=== PATIENT | male | born 1990 | race Two or more races ===

== ENCOUNTER 2019-07-31 09:53 | Emergency (ER) | payer SELFPAY ==
--- NOTE | 2019-07-31 10:19 | ED Physician Documentation ---
History of Present Illness - Stated complaint Stated Complaint: TOE ON R FOOT SWOLLEN - Chief complaint Chief Complaint: Ext Problem - History obtained from History obtained from: Patient - History of Present Illness Timing: Today - Additonal information Additional information: This is a 28-year-old presents with complaints that his Right second toe had been, bothering him to the week this past week but he had not had any specific injury to it so he was not that concerned and then he woke up this morning with discoloration across the top part of the toe. He did not take anything for the pain. It is more painful to try and put weight on it. No known injury. 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 He does not take blood thinning medications. Review of Systems Skin: reports: Other (Discoloration to right second toe) Musculoskeletal: reports: Extremity pain, Joint pain Neurologic: denies: Numbness PD PAST MEDICAL HISTORY - Past Medical History Past Medical History: No - Allergies Allergies/Adverse Reactions: Allergies Allergy/AdvReac Type Severity Reaction Status Date / Time No Known Drug Allergies Allergy Verified 07/31/19 10:00 - Social History Does the pt smoke?: No Smoking Status: Never smoker PD ED PE NORMAL - Vitals Vital signs reviewed: Yes - General General: Alert and oriented X 3, No acute distress, Well developed/nourished - Extremities Extremities: Other (There is deep purple discoloration consistent with bruising over the dorsal aspect of the right second toe centered mainly around the middle phalanx but spreading even to the plantar surface of the toe near the crease and also onto the dorsal aspect of the left foot. Has pain with palpation over the proximal and middle phalanx. He is able to wiggle the toe but limited movement compared to the other toes on that foot. Sensation is intact light touch in the pad.) Results - Vitals Vitals: Vital Signs - 24 hr 07/31/19 10:00 Temperature 36.7 C Heart Rate 86 Respiratory 15 Rate Blood Pressure 139/70 H O2 Saturation 100 Oxygen O2 Source Room air - Rads (name of study) R 2nd toe Radiology: EMP read contemporaneously (neg fracture) PD MEDICAL DECISION MAKING - ED course Complexity details: reviewed results, d/w patient ED course: The toe x-ray does not reveal any fracture. The patient is reassured. I recommended making sure that nothing is putting pressure on that while he is walking in his shoe. Ibuprofen if needed for pain. Departure - Departure Disposition: 01 Home, Self Care Clinical Impression: Contusion of toe of right foot Qualifiers: Encounter type: initial encounter Toe: lesser toe Damage to nail status: without damage Qualified Code(s): S90.121A - Contusion of right lesser toe(s) without damage to nail, initial encounter Condition: Good Instructions: ED Contusion Foot Follow-Up: [facility] [Provider Group] Comments: Take ibuprofen or Tylenol if needed for pain. Make sure nothing is pushing on the toe while it is in your shoe. Follow-up as needed.
[2019-07-31 11:32] VITALS: BP 124/54
--- NOTE | 2019-07-31 11:55 | XRAY Report ---
Reason: pain Procedure Date: 07/31/2019 Accession Number: [id number] / [id number] Procedure: XR - Toe(s) RT CPT Code: Final Report FULL RESULT: EXAM: RIGHT SECOND TOE RADIOGRAPHY EXAM DATE: 07/31/2019 11:06 AM HISTORY: Pain and swelling. COMPARISON: NONE TECHNIQUE: 3 views FINDINGS: The tip of the distal phalanx is flattened which may be a normal variant or secondary to old injury. No acute bony erosion. No fracture. Intact and well aligned articulations. Mild soft tissue swelling. No foreign body or gas. IMPRESSION: Normal variant flattened distal phalanx or old healed fracture. Mild soft tissue swelling. RADIA
== END 2019-07-31 11:32 | disposition home or self-care (01) ==
LOC: ED 09:53
DX: S90.121A Contusion of right lesser toe(s) without damage to nail, initial encounter (principal); X58.XXXA Exposure to other specified factors, initial encounter
CPT/HCPCS: 73660; 99282; 99283

== ENCOUNTER 2019-08-21 15:22 | Emergency (ER) | payer OTHER ==
[2019-08-21] MEDS ORDERED: IBUPROFEN 600 MG TABLET PO STA (15:36)
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
[2019-08-21] MEDS ORDERED: LIDOCAINE 1% 2 ML VIAL SUBQ STA (15:57)
[2019-08-21] MEDS ORDERED: LIDOCAINE 2% 50 ML MDV SUBQ STA (16:02)
--- NOTE | 2019-08-21 16:07 | XRAY Report ---
Reason: Trauma, swelling bruised Procedure Date: 08/21/2019 Accession Number: [id number] / [id number] Procedure: XR - Hand 3 View RT CPT Code: Final Report FULL RESULT: EXAM: RIGHT HAND RADIOGRAPHY EXAM DATE: 08/21/2019 03:41 PM. CLINICAL HISTORY: Right hand trauma after slamming hand in door, bruising. COMPARISON: None. TECHNIQUE: 3 views. FINDINGS: Bones: Acute comminuted right fifth metacarpal neck fracture is evident. Displacement measures up to approximately 2 mm with apex dorsal lateral angulation measuring approximately 40 degrees. Joints: Normal. No subluxations. Soft Tissues: Adjacent soft tissue swelling noted. IMPRESSION: Acute comminuted right fifth metacarpal neck fracture with apex dorsal lateral angulation. RADIA
--- NOTE | 2019-08-21 17:31 | XRAY Report ---
Reason: post reduction Procedure Date: 08/21/2019 Accession Number: [id number] / [id number] Procedure: XR - Hand 3 View RT CPT Code: Final Report FULL RESULT: EXAM: RIGHT HAND RADIOGRAPHY EXAM DATE: 08/21/2019 04:57 PM. CLINICAL HISTORY: Post reduction. COMPARISON: HAND 3 VIEW RT 08/21/2019 3:41 PM. TECHNIQUE: 3 views. FINDINGS: Bones: An acute displaced transverse nonarticular fracture through the distal aspect of right fifth metacarpal with improved angulation since prior/prereduction. Joints: Normal. No subluxations. Soft Tissues: Moderate soft tissue swelling overlying fracture site. IMPRESSION: An acute displaced transverse nonarticular fracture through the distal aspect of right fifth metacarpal with slightly improved angulation since prior/prereduction. RADIA
[2019-08-21 17:50] VITALS: BP 130/72
--- NOTE | 2019-08-21 19:14 | MISCELLANEOUS PROVIDER NOTE ---
Miscellaneous Provider Note - - Note: Called to give a "heads up" about this patient by Dr. Mitchell. Reported right closed 5th mc fracture post crush injury. Closed reduction reportedly attempted with hematoma block. Reported some residual angular or rotational deformity. Possible due to less common angular deformity which is more apex ulnar rather than apex dorsal which may be more difficult to reduce in ED. Patient advised of potentially residual deformity, that he may need additional procedure, and advised ED MD that Orthopedic Office would reach out to him to help arrange further treatment whether that is at [facility] care or with an orthopedic hand and wrist specialist. That said, he is to be given contact info and asked to call office in AM as well.
== END 2019-08-21 17:49 | disposition home or self-care (01) ==
LOC: ED 15:22
DX: S62.326A Displaced fracture of shaft of fifth metacarpal bone, right hand, initial encounter for closed fracture (principal); W23.0XXA Caught, crushed, jammed, or pinched between moving objects, initial encounter; Y93.F9 Activity, other caregiving; Y99.0 Civilian activity done for income or pay
CPT/HCPCS: 26605; 73130; 99283; A9270

== ENCOUNTER 2019-08-25 09:35 | Emergency (ER) | payer OTHER ==
[2019-08-25 09:52] VITALS: BP 123/69
[2019-08-25] MEDS ORDERED: DEXAMETHASONE 10 MG/ML VIAL PO STA (11:05)
[2019-08-25] MEDS ORDERED: CHERRY SYRUP 10 ML UDC PO ONE (11:05)
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
== END 2019-08-25 11:16 | disposition home or self-care (01) ==
LOC: ED 09:35
DX: S62.366A Nondisplaced fracture of neck of fifth metacarpal bone, right hand, initial encounter for closed fracture (principal); Y08.89XA Assault by other specified means, initial encounter; Y99.0 Civilian activity done for income or pay
CPT/HCPCS: 99282; 99284; A9270

== ENCOUNTER 2020-01-26 20:49 | Emergency (ER) | payer OTHER ==
[2020-01-26 20:54] VITALS: BP 148/82
--- NOTE | 2020-01-26 21:03 | ED Physician Documentation ---
History of Present Illness - Stated complaint Stated Complaint: RT SIDE TOOTH PAIN - Chief complaint Chief Complaint: General - History obtained from History obtained from: Patient - History of Present Illness Timing: How many days ago (3) - Additonal information Additional information: 29-year-old male here with 3 days of right upper tooth pain. He has obvious dental decay there and thinks he needs to have the tooth pulled. He has no fevers or trismus. He has no dysphonia or difficulty swallowing. He turns his neck normally. There is no facial swelling. Has not seen a dentist in quite some time. He has not taken anything for pain but last night he took a Benadryl to help him sleep. Patient denies any tobacco or alcohol. He denies any pertinent past medical history. Review of Systems Constitutional: denies: Fever, Chills Throat: reports: Dental pain / toothache. denies: Oral lesions / sores, Sore throat, Swollen tonsils, Swallowed foreign body Cardiac: denies: Chest pain / pressure, Palpitations Respiratory: denies: Dyspnea, Cough GI: denies: Abdominal Pain, Vomiting Skin: denies: Rash, Lesions Musculoskeletal: denies: Neck pain, Back pain Neurologic: denies: Generalized weakness, Focal weakness, Syncope, Seizure, Confused PD PAST MEDICAL HISTORY - Present Medications Home Medications: Ambulatory Orders Medication Instructions Recorded Confirmed Hydrocodone/Acetaminophen 1 - 2 each PO Q6H PRN #14 tablet 08/21/19 [Hydrocodon-Acetaminophen 5-325] Oxycodone HCl/Acetaminophen 1 - 2 each PO Q6H PRN #14 tablet 08/25/19 [Percocet 5-325 mg Tablet] Amox/Clav 875/125 [Augmentin] 1 each PO Q12H #14 tablet 01/26/20 Ibuprofen [Ibu] 600 mg PO Q8HR PRN #20 tablet 01/26/20 - Allergies Allergies/Adverse Reactions: Allergies Allergy/AdvReac Type Severity Reaction Status Date / Time No Known Drug Allergies Allergy Verified 01/26/20 20:50 - Social History Does the pt smoke?: No Smoking Status: Never smoker PD ED PE NORMAL - General General: Alert and oriented X 3, No acute distress, Well developed/nourished - HEENT HEENT: Moist mucous membranes, Pharynx benign (Patient with normal phonation and swallow. Able to turn neck fully. He has no trismus and is able to open his mouth fully. There is no facial swelling.), Other (Tooth #3 with obvious decay on anterior side of tooth. Gumline surrounding tooth mildly fluctuant. There is percussion tenderness to the tooth.) - Cardiac Cardiac: RRR, No murmur - Abdomen Abdomen: Non tender Results - Vitals Vitals: Vital Signs - 24 hr 01/26/20 01/26/20 20:50 20:59 Temperature 37.8 C H Heart Rate 77 Respiratory 20 17 Rate Blood Pressure 148/82 H O2 Saturation 97 Oxygen O2 Source Room air PD MEDICAL DECISION MAKING - ED course Complexity details: d/w patient ED course: 29-year-old male here with 3 days of right upper tooth pain at tooth #3. The tooth is obviously decayed with some mild gumline swelling and fluctuance surrounding it. I have prescribed Augmentin for early abscess. I recommend warm salt water rinses 3 times a day. Patient reports that he [place] and [place] [facility] [place] [facility] [place] His exam is otherwise reassuring without findings suggestive of fever or trismus. He has normal phonation and swallow. Emergent return precautions discussed. Departure - Departure Disposition: 01 Home, Self Care Clinical Impression: Dentalgia, Dental decay, Dental abscess Condition: Stable Instructions: ED Tooth Pain Prescriptions: Ibuprofen [Ibu] 600 mg PO Q8HR PRN #20 tablet PRN Reason: Pain Amox/Clav 875/125 [Augmentin] 1 each PO Q12H #14 tablet Comments: Who is a your third molar is decayed and it looks like you have an early abscess forming. Please fill the prescription for the antibiotics and take as directed. I would like you to rinse your mouth with warm salt water 3 times a day. This will help draw out infection and reduce inflammation. I have also prescribed ibuprofen to be used for pain. Take as directed and with food this should help with pain in the long-term. [place] of this tooth pain as it will only get worse with time Return here for fevers, inability to open your mouth, if you cannot tolerate or swallow your oral secretions.
[2020-01-26] MEDS ORDERED: IBUPROFEN 600 MG TABLET PO STA (21:04)
== END 2020-01-26 21:11 | disposition home or self-care (01) ==
LOC: ED 20:49
DX: K04.7 Periapical abscess without sinus (principal); K02.9 Dental caries, unspecified; K08.89 Other specified disorders of teeth and supporting structures
CPT/HCPCS: 99282; 99283; A9270

== ENCOUNTER 2020-10-17 13:47 | Emergency (ER) | payer OTHER ==
--- OUTSIDE RECORDS SUMMARY | 2020-10-17 13:51 | EXTERNAL MEDICAL SUMMARY RPT | Continuity of Care Document ---
:1990 Demographics Phone Unavailable Preferred Language Unknown Marital Status Unknown Taoist Affiliation Unknown Race Unknown Ethnic Group Unknown Author Organization [facility] Address [address] [place] [address] Phone Social History date description facility [phone]
[2020-10-17 13:55] VITALS: BP 145/66
--- OUTSIDE RECORDS SUMMARY | 2020-10-17 13:58 | EXTERNAL MEDICAL SUMMARY RPT | Continuity of Care Document ---
:1990 Demographics Phone Unavailable Preferred Language Unknown Marital Status Unknown Anabaptism Affiliation Unknown Race Unknown Ethnic Group Unknown Author Organization [facility] Address [address] [place] [address] Phone Social History date description facility [phone]
--- NOTE | 2020-10-17 14:22 | ED Physician Documentation ---
History of Present Illness - Stated complaint Stated Complaint: SORE ON BACKSIDE - Chief complaint Chief Complaint: Wound - Additonal information Additional information: 29-year-old male presents emergency department for evaluation of a soft tissue growth on his right buttock. He reports that his noticed it about 3 months ago however over the last week the growth has become painful and often causes numbness in the left leg especially when sitting. He has no history of similar in the past. Review of Systems Constitutional: reports: Reviewed and negative Eyes: reports: Reviewed and negative Ears: reports: Reviewed and negative Nose: reports: Reviewed and negative Cardiac: reports: Reviewed and negative Respiratory: reports: Reviewed and negative GI: reports: Reviewed and negative : reports: Reviewed and negative Skin: reports: Other (soft tissue swelling left buttock) Musculoskeletal: reports: Reviewed and negative Neurologic: reports: Numbness (left leg when sitting for too long) PD PAST MEDICAL HISTORY - Past Medical History Cardiovascular: None Respiratory: None Neuro: None Endocrine/Autoimmune: None GI: None : None HEENT: None Psych: None Musculoskeletal: None Derm: None - Past Surgical History Past Surgical History: No - Present Medications Home Medications: Ambulatory Orders Medication Instructions Recorded Confirmed No Known Home Medications 10/17/20 10/17/20 - Allergies Allergies/Adverse Reactions: Allergies Allergy/AdvReac Type Severity Reaction Status Date / Time No Known Drug Allergies Allergy Verified 10/17/20 13:48 - Social History Does the pt smoke?: No Smoking Status: Never smoker Does the pt drink ETOH?: No Does the pt have substance abuse?: No - Immunizations Immunizations are current?: Yes - POLST Patient has POLST: No PD ED PE EXPANDED - General General: Alert, No acute distress - Back Back: Normal exam, Normal ROM. No: Vertebral tenderness, Soft tissue tenderness - Extremities Extremities: Normal, Other (left buttock with a palpable soft, non fluctuant non mobile mass 5x6 cm; no erythema). No: Deformity, Tenderness Results - Vitals Vitals: Vital Signs - 24 hr 10/17/20 13:49 Temperature 36.6 C Heart Rate 85 Respiratory 18 Rate Blood Pressure 145/66 H O2 Saturation 99 Oxygen O2 Source Room air - Rads (name of study) Soft tissue US Radiology: See rad report, Other (Per ophthalmic technologist this is a simple appearing lipoma without complicating features.) PD MEDICAL DECISION MAKING - ED course Complexity details: reviewed results, re-evaluated patient, d/w patient ED course: 29-year-old male presents the emergency department for evaluation of left buttock tissue mass that was first noted 3 months ago but has become increasingly painful over the last week. He often has some numbness in the left leg when he sits for too long. On exam he has a palpable nonmobile soft nonfluctuant mass that I suspect is a lipoma on initial investigation. My limited bedside ultrasound did not reveal any fluid collections. I will order a formal ultrasound to better characterize this mass and then likely make referral to outpatient surgery for further evaluation. Though he reports left leg numbness intermittently when sitting I suspect this is peripheral nerve compression secondary to the mass. He does not have any low back pain or cauda equina red flag symptoms. Findings were discussed with patient. He will be discharged home. I will make a referral for him to general surgery clinic though at this likely needs to come through his primary care provider as he is insured with [employer]. Emergent return precautions were discussed. Departure - Departure Disposition: 01 Home, Self Care Clinical Impression: Lipoma Qualifiers: Lipoma location: other site Qualified Code(s): D17.79 - Benign lipomatous neoplasm of other sites Condition: Stable Record reviewed to determine appropriate education?: Yes Instructions: Lipoma Follow-Up: Gaby Dela Cruz MD [Provider Admit Priv/Credential] - Comments: Marvin the soft tissue mass on your left buttock is a lipoma. This is likely grown large enough to put some pressure on one of the peripheral nerves in your leg causing the intermittent numbness especially when sitting. In the long-term you likely need to have this lipoma excised or taken out. I have given you the name of a general surgeon to call for follow-up however as you are insured with [employer] a primary care doctor will likely need to make the referral. Return to the emergency department for any fevers, redness of this lipoma or concerns of infection.
--- NOTE | 2020-10-17 15:15 | Ultrasound Report ---
PROCEDURE: Ext Limited Non Vascular INDICATIONS: Left buttock. ? lipoma TECHNIQUE: Real-time scanning was performed of the , with image documentation. COMPARISON: None. FINDINGS: There is a encapsulated 3.0 x 1.3 x 4.0 cm left buttock mass, corresponding to the area of current clinical concern. This has echotexture consistent with lipoma. IMPRESSION: Apparent fatty mass in the area of current clinical concern left lateral buttock area, m easuring up to 3.0 x 4.0 x 1.3 cm. MR scanning is recommended with contrast history of liposarcoma is clinically suspected. Reviewed by: Samm Medel MD on 10/17/2020 3:13 PM PDT Approved by: Samm Medel MD on 10/17/2020 3:13 PM PDT Station ID: [id number]
--- NOTE | 2020-10-19 16:26 | ED Physician Documentation ---
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 I spoke with the patient on the phone regarding this he is not yet established with a primary provider and will need an emergent MRI in follow up. The ED does not have MRI availability at this time. I advised the patient to go to the [facility] walk in to help expedite care. 1620: I then called the [facility] walk in clinic and spoke with Dr. Henrandez on shift. We briefly discussed the case and I indicated that the patient would be checking into the clinic shortly. I discussed that he was not yet established with a [facility] doctor and needs a more emergent follow up of the possible liposacroma. Pt's full name and were given. Dr. Hernandez reported that he would help arrange appropriate follow up and care.
== END 2020-10-17 15:14 | disposition home or self-care (01) ==
LOC: ED 13:47
DX: D17.79 Benign lipomatous neoplasm of other sites (principal)
CPT/HCPCS: 99282; 99284

== ENCOUNTER 2020-11-05 16:43 | Outpatient (CLI) | payer OTHER | END 2020-11-05 16:44 | disposition home or self-care (01) | LOC: COV 16:43 | PROVIDERS: ATTEND Surgery | DX: Z01.812 Encounter for preprocedural laboratory examination (principal); D17.1 Benign lipomatous neoplasm of skin and subcutaneous tissue of trunk; Z20.822 Contact with and (suspected) exposure to COVID-19 ==

== ENCOUNTER 2020-11-08 08:57 | Day surgery (SDC) | payer OTHER ==
[~2020-11-08 08:57] MED LIST: ceFAZolin 2 GM/50 ML 2 GM/50 ML BAG IV ONE
[2020-11-08] MEDS ORDERED: LACTATED RINGERS 1,000 ML IV ONE ×2 (09:00→12:54)
--- OUTSIDE RECORDS SUMMARY | 2020-11-08 09:00 | EXTERNAL MEDICAL SUMMARY RPT | Continuity of Care Document ---
:1990 Demographics Phone Unavailable Preferred Language Unknown Marital Status Unknown Zoroastrian Affiliation Unknown Race Unknown Ethnic Group Unknown Author Organization [facility] Address [address] [phone] Phone Social History date description facility [id number]
--- NOTE | 2020-11-08 09:53 | ANESTHESIA ---
Pre-Anesthesia VS, & Labs - Diagnosis left buttock lipoma - Procedure excision of left buttock lipoma Vital Signs: Temp Pulse Resp BP Pulse Ox 36.7 C 85 16 142/71 H 99 11/08/20 09:03 11/08/20 09:03 11/08/20 09:03 11/08/20 09:03 11/08/20 09:03 Height: 5 ft 8 in Weight (kg): 77 kg Body Mass Index: 25.8 BMI Classification: Overweight - NPO >8 hours Home Medications and Allergies No Known Home Medications 10/17/20 Allergies/Adverse Reactions: Allergies Allergy/AdvReac Type Severity Reaction Status Date / Time No Known Drug Allergies Allergy Verified 10/17/20 13:48 Anes History & Medical History - Anesthetic History Anesthesia Complications: reports: No previous complications - Medical History Cardiovascular: reports: None Pulmonary: reports: None Gastrointestinal: reports: None Urinary: reports: None Neuro: reports: None Musculoskeletal: reports: None Endocrine/Autoimmune: reports: None Blood Disorders: reports: None Skin: reports: None Smoking Status: Never smoker Psychosocial: reports: Cannabis (daily use) History of Cancer?: No - Surgical History Cardiothoracic: reports: Other (Thorocospic decortication) Exam General: Alert, Oriented x3, Cooperative, No acute distress Dental: WNL Mouth Openin Fingerbreadth Neck Mobility: Normal Mallampati classification: II Thyromental Distance: 4-6 cm Respiratory: Lungs clear, Normal breath sounds, No respiratory distress, No accessory muscle use Cardiovascular: Regular rate, Normal S1, Normal S2, No murmurs Mental/Cognitive Status: Alert/Oriented X3, Normal for patient Plan Anesthesia Type: General Consent for Procedure(s) Verified and Reviewed: Yes Code Status: Attempt Resuscitation ASA classification: 2-Mild systemic disease Is this case an emergency?: No
[2020-11-08] MEDS ORDERED: fentaNYL 100 MCG/2 ML VIAL ONE (10:17)
[2020-11-08] MEDS ORDERED: MIDAZOLAM 2 MG/2 ML VIAL ONE ×2 (10:17→11:36)
[2020-11-08] MEDS ORDERED: PROPOFOL 200 MG/20 ML VIAL IVP ONE ×2 (10:17)
[2020-11-08] MEDS ORDERED: LIDOCAINE MPF 2%-EPI 1:200000 20 ML VIAL ONE (11:24)
[2020-11-08] MEDS ORDERED: BUPIVACAINE 0.5% PF 30 ML VIAL ONE (11:24)
[2020-11-08] MEDS ORDERED: LIDOCAINE 2%-EPI 1:100000 20 ML MDV SUBQ ONE ×2 (11:30→12:30)
[2020-11-08] MEDS ORDERED: BUPIVACAINE 0.5% PF 30 ML VIAL INFIL ONE ×2 (11:30→12:30)
[2020-11-08] MEDS ORDERED: KETAMINE 500 MG/10 ML VIAL ONE (11:36)
[2020-11-08] MEDS ORDERED: BACITRACIN ZINC OINT 1 PACKET TOP ONE (12:32)
[2020-11-08] MEDS ORDERED: PROPOFOL 1000 MG/100 ML 1,000 MG/100 ML BOTTLE IV ONE (12:33)
[2020-11-08] MEDS ORDERED: ONDANSETRON 4 MG/2 ML VIAL IVP PRN (12:41)
[2020-11-08] MEDS ORDERED: HYDROmorphone 0.5 MG/0.5 ML SYRINGE IVP PRN (12:41)
[2020-11-08] MEDS ORDERED: oxyCODONE 5 MG TABLET PO PRN (12:41)
--- NOTE | 2020-11-08 12:48 | PROVIDER PROGRESS NOTE ---
Progress Note - General Procedure Date: 11/08/20 Planned Procedure: 1. Left buttock lipoma 2. Wide local excision Pre-Op Diagnosis: Left buttock lipoma Procedure Performed: 1. Left buttock lipoma 2. Wide local excision Post Op Diagnosis: Same - Procedure Note Primary Surgeon: Yanick Secondary Surgeon: Dewayne Anesthesia Provider: Luis Enrique Anesthesia Technique: Local, MAC Pathology: 1. Left buttock lipoma 2. Deep margin Estimated Blood Loss (mL): 10 Indications: See clinic note Findings: 4 to 5 cm lipomatous lesion within the left buttock removed in the superficial subcutaneous fat deep margin achieved wound closed in layers hemostatic no complication. Complications: none
--- NOTE | 2020-11-08 12:51 | OPERATIVE REPORT ---
Operative Report - General Procedure Date: 11/08/20 Planned Procedure: 1. Left buttock lipoma 2. Wide local excision Pre-Op Diagnosis: Left buttock lipoma Procedure Performed: 1. Left buttock lipoma 2. Wide local excision 3. Layered closure Post Op Diagnosis: Same - Procedure Note Primary Surgeon: Yanick Secondary Surgeon: Dewayne Anesthesia Provider: Luis Enrique Anesthesia Technique: Local, MAC Pathology: 1. Left buttock lipoma 2. Deep margin Estimated Blood Loss (mL): 10 Drain/Tube Type: Other (No drains) Indications: See clinic note Findings: 4 to 5 cm lipomatous lesion within the left buttock removed in the superficial subcutaneous fat deep margin achieved wound closed in layers hemostatic no complication. Complications: none - Other Other Information/Narrative: DATE OF SERVICE: 11/08/2020 Physician: Vikash Herndon MD ADDENDUM OPERATIVE NOTE: Patient taken to the operating room and placed supine on the operating table. Patient was placed in partial right decubitus to expose the left buttock. Patient was induced for general anesthesia, prepped and draped in the usual sterile fashion. Site and side were marked and identified. Timeout was called and agreed to by all in the room. A longitudinal incision of approximately 7 to 10cm was made overlying the area of concern as it relates to the patient's known lipoma. This was taken down through the subcutaneous fat with Bovie electrocautery. The soft tissue mass was identified and excised circumferentially with sharp dissection using Metzenbaum scissors. An area of soft tissue mass deep penetration was noted, which was also incised as separate specimen reflecting the deep margin. This mass was approximately 5 cm in length, and 3 cm in width and depth. 4 to 5 cm lipomatous lesion within the left buttock removed in the superficial subcutaneous fat, deep margin achieved wound closed in layers hemostatic no complication. Additional margin was approximately 3-4 cm in length and 2 cm diameter. With this completed, we checked for hemostasis, which was achieved. This was accomplished with Bovie electrocautery. We closed this wound in layers without any complication. This was performed with 2-0 Vicryl to close deep subcutaneous fat and deep dermals, and skin shaji for the skin. A local block was achieved. The patient tolerated well with no complication. The wound was dressed with dry sterile gauze and Tegaderm. I was present for the entirety of this operative intervention. No complications. As present for the entirety of this operative intervention. All counts for sponges needles and instruments were inclusion of this operative case. TD: 11/19/2020 04:10
[2020-11-08] MEDS ORDERED: LACTATED RINGERS 1,000 ML IV SCH (13:00)
[2020-11-08 13:11] VITALS: BP 128/75
[2020-11-08] MEDS ORDERED: oxyCODONE 5 MG TABLET ONE (13:14)
--- NOTE | 2020-11-08 13:35 | ANESTHESIA POST OP EVALUATION ---
Anesthesia Post Eval - Post Anesthesia Eval Vitals: Last Vital Signs Temp 36.4 C L 11/08/20 13:10 Pulse 68 11/08/20 13:10 Resp 17 11/08/20 13:10 BP 128/75 11/08/20 13:10 Pulse Ox 99 11/08/20 13:10 CV Function Including HR & BP: Stable Pain Control: Satisfactory Nausea & Vomiting: Negative Mental Status: Baseline Respiratory Status: Airway Patent Hydration Status: Satisfactory Anesthesia Complications: None
== END 2020-11-08 08:58 | disposition home or self-care (01) ==
LOC: SDS 08:57
PROVIDERS: ATTEND Surgery
PROC: 0JBC0ZZ Excision of Pelvic Region Subcutaneous Tissue and Fascia, Open Approach (ICD-10-PCS; principal; 2020-11-08 10:00)
DX: D17.1 Benign lipomatous neoplasm of skin and subcutaneous tissue of trunk (principal); E66.3 Overweight; Z68.25 Body mass index [BMI] 25.0-25.9, adult; Z72.89 Other problems related to lifestyle; Z87.891 Personal history of nicotine dependence
CPT/HCPCS: 27043; A9270; J0690; J7120

== ENCOUNTER 2021-08-10 02:57 | Emergency (ER) | payer OTHER ==
[2021-08-10] MEDS ORDERED: PROPARACAINE 0.5% OPHTH DROPS 15 ML EACHEYE STA (03:24)
[2021-08-10] MEDS ORDERED: IPRATROPIUM/ALBUTEROL 3 ML NEB INH STA (03:31)
--- NOTE | 2021-08-10 03:35 | ED Physician Documentation ---
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 denies fever/chills, body aches, malaise, ear pain. covid vaccinated. not boosted. Review of Systems Ten Systems: 10 systems reviewed and negative Constitutional: denies: Fever, Chills, Myalgias Throat: reports: Sore throat Cardiac: reports: Other (chest tightness) Respiratory: reports: Dyspnea, Cough PD PAST MEDICAL HISTORY - Past Medical History Cardiovascular: None Respiratory: None Neuro: None Endocrine/Autoimmune: None GI: None : None HEENT: Chronic vision loss Psych: None Musculoskeletal: None Derm: None - Past Surgical History Past Surgical History: No Cardiovascular: Other (Thorocospic decortication) - Present Medications Home Medications: Ambulatory Orders Medication Instructions Recorded Confirmed Albuterol Sulf [Ventolin Hfa 1 - 2 puffs INH Q4HR PRN #18 gm 08/10/21 Inhaler] - Allergies Allergies/Adverse Reactions: Allergies Allergy/AdvReac Type Severity Reaction Status Date / Time No Known Drug Allergies Allergy Verified 08/10/21 03:19 - Social History Does the pt smoke?: No Smoking Status: Never smoker Does the pt drink ETOH?: No Does the pt have substance abuse?: No - Immunizations Immunizations are current?: Yes - POLST Patient has POLST: No PD ED PE NORMAL - Vitals Vital signs reviewed: Yes - General General: Alert and oriented X 3, No acute distress, Well developed/nourished - HEENT HEENT: Atraumatic, PERRL, EOMI - Neck Neck: Supple, no meningeal sign - Cardiac Cardiac: RRR - Respiratory Respiratory: Other (BL expiratory wheezing in all lung amos) - Abdomen Abdomen: Non tender, Non distended - Derm Derm: Normal color, Warm and dry - Extremities Extremities: No deformity - Neuro Neuro: Alert and oriented X 3, No motor deficit, No sensory deficit - Psych Psych: Normal mood, Normal affect Results - Vitals Vitals: Vital Signs - 24 hr 08/10/21 08/10/21 08/10/21 03:00 03:59 05:47 Temperature 37.3 C Heart Rate 129 H 86 92 Respiratory 20 18 18 Rate Blood Pressure 123/78 O2 Saturation 96 08/10/21 05:49 Temperature 36.8 C Heart Rate 112 H Respiratory 18 Rate Blood Pressure 111/67 O2 Saturation 97 Oxygen O2 Source Room air PD MEDICAL DECISION MAKING - ED course ED course: 30yM with hx severe childhood asthma and spontaneous PTX 4 years ago, both now resolved, p/w acute onset SOA while exerting himself at work this evening. Coarse breath sounds and expiratory wheezing throughout lung amos concerning for asthma exacerbation. Will also obtain CXR to r/o PTX. patient feeling significantly better s/p neb treatments. plan to dc home to f/u with pcp. cxr without evidence of PTX. return precautions given and albuterol rx provided. Departure - Departure Disposition: Home, Self Care Clinical Impression: Cough, Shortness of breath Condition: Stable Instructions: Asthma, Inhaler W Spacer, Inhaler Use Prescriptions: Albuterol Sulf [Ventolin Hfa Inhaler] 1 - 2 puffs INH Q4HR PRN #18 gm PRN Reason: Shortness Of Air/Wheezing Comments: You were seen in the ED for evaluation of sudden shortness of breath. Your chest xray showed no pneumothorax or pneumonia. A covid test was sent and will result in a couple days. You can view the results on your patient health portal on the [employer] website. You should follow up with your primary doctor for further evaluation of possible new onset asthma. Please return to the ED if you have new or worsening symptoms or other concerns.
[2021-08-10] MEDS ORDERED: ALBUTEROL NEB 2.5 MG/3 ML INH STA (05:39)
[2021-08-10 07:02] VITALS: BP 125/85
--- NOTE | 2021-08-10 07:51 | XRAY Report ---
PROCEDURE: Chest 2 View X-Ray INDICATIONS: soa, cough, chest tight, sore throat, rhinorrhea TECHNIQUE: 2 view(s) of the chest. COMPARISON: None. FINDINGS: Surgical changes and devices: None. Lungs and pleura: No pleural effusions or pneumothorax. Lungs are clear of infiltrates right basila r atelectasis. Mediastinum: Mediastinal contours are normal. Heart size is normal. Bones and chest wall: No suspicious bony abnormalities. Soft tissues appear unremarkable. IMPRESSION: No acute cardiopulmonary findings Note: Final report is concordant with preliminary report provided by [facility] ([facility]) Reviewed by: Zen Varghese MD on 08/10/2021 6:50 AM [place] Approved by: Zen Varghese MD on 08/10/2021 6:50 AM [facility] Station ID: [id number]
== END 2021-08-10 06:58 | disposition home or self-care (01) ==
LOC: ED 02:57
DX: R05.9 Cough, unspecified (principal); R06.02 Shortness of breath; Z20.822 Contact with and (suspected) exposure to COVID-19
CPT/HCPCS: 94640; 94664; 99283; 99284

== ENCOUNTER 2022-01-06 07:05 | Emergency (ER) | payer OTHER ==
[2022-01-06] MEDS ORDERED: HYDROcod/ACETAM 5/325 MG TABLET PO STA (08:18)
--- NOTE | 2022-01-06 08:23 | ED Physician Documentation ---
History of Present Illness - Stated complaint Stated Complaint: R SIDE PAIN - Chief complaint Chief Complaint: General - History obtained from History obtained from: Patient - History of Present Illness Timing: Other (2 months) Pain level max: 7 Pain level now: 6 - Additonal information Additional information: Patient is a 31-year-old male who complains of right rib pain for the past 2 months. He states started after coughing heavily. Worse with movement, better with rest. Has seen his doctor, was told it was likely muscular and sent home. No x-rays have been done. No fever. No chills. No recent coughing. Denies any other trauma. Review of Systems Constitutional: denies: Fever, Chills Throat: denies: Sore throat Cardiac: denies: Chest pain / pressure, Palpitations Respiratory: denies: Dyspnea, Wheezing GI: denies: Nausea, Vomiting Skin: denies: Rash PD PAST MEDICAL HISTORY - Past Medical History Cardiovascular: None Respiratory: None Neuro: None Endocrine/Autoimmune: None GI: None : None HEENT: Chronic vision loss Psych: None Musculoskeletal: None Derm: None - Past Surgical History Past Surgical History: No Cardiovascular: Other (Thorocospic decortication) - Present Medications Home Medications: Ambulatory Orders Medication Instructions Recorded Confirmed Albuterol Sulf [Ventolin Hfa 1 - 2 puffs INH Q4HR PRN #18 gm 08/10/21 Inhaler] HYDROcod/ACETAM 5/325 [Monroe 5/325] 1 - 2 ea PO Q6H PRN #14 tablet 01/06/22 Lidocaine Patch 5% [Lidoderm Patch] 1 patch TOP DAILY PRN #10 patch 01/06/22 - Allergies Allergies/Adverse Reactions: Allergies Allergy/AdvReac Type Severity Reaction Status Date / Time No Known Drug Allergies Allergy Verified 01/06/22 07:24 - Social History Does the pt smoke?: No Smoking Status: Never smoker Does the pt drink ETOH?: No Does the pt have substance abuse?: No - Immunizations Immunizations are current?: Yes - POLST Patient has POLST: No PD ED PE NORMAL - Vitals Vital signs reviewed: Yes - General General: Alert and oriented X 3, No acute distress - HEENT HEENT: Moist mucous membranes - Neck Neck: Supple, no meningeal sign - Cardiac Cardiac: RRR - Respiratory Respiratory: No respiratory distress, Clear bilaterally - Abdomen Abdomen: Soft, Non tender, Non distended - Back Back: No spinal TTP - Derm Derm: Warm and dry - Neuro Neuro: Alert and oriented X 3 - Free text exam Free text exam: Tender palpation the right ribs, approximately 5 through 9. No crepitus. Tender in the mid axillary line. No ecchymosis. Results - Vitals Vitals: Vital Signs - 24 hr 01/06/22 01/06/22 07:21 09:16 Temperature 36.4 C L Heart Rate 73 66 Respiratory 18 16 Rate Blood Pressure 155/86 H 124/84 H O2 Saturation 100 98 Oxygen O2 Source Room air - Rads (name of study) Right ribs with chest x-ray Radiology: Final report received, EMP read contemporaneously, See rad report (Right posterolateral minimally displaced fifth and sixth and possibly nondisplaced seventh rib fractures) PD MEDICAL DECISION MAKING - ED course Complexity details: reviewed results, re-evaluated patient, considered differential, d/w patient ED course: 31-year-old male with 2-3 right-sided rib fractures. 2-month-old. Will prescribe pain medications for home. We will have him follow-up with his doctor for further care. I am prescribing a short course of short-acting opioid pain medication for this patient. 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 I have discussed that the opioids are for short term therapy only, and will not be refilled from the ED. patient counseled regarding signs and symptoms for which I believe and urgent re-evaluation would be necessary. Patient with good understanding of and agreement to plan and is comfortable going home at this time This document was made in part using voice recognition software. While efforts are made to proofread this document, sound alike and grammatical errors may occur. Departure - Departure Disposition: 01 Home, Self Care Clinical Impression: Right rib fracture Qualifiers: Encounter type: initial encounter Rib fracture type: multiple ribs Fracture type: closed Qualified Code(s): S22.41XA - Multiple fractures of ribs, right side, initial encounter for closed fracture Condition: Good Instructions: ED Fx Rib Follow-Up: Your,doctor in 1 week [Other] Prescriptions: Lidocaine Patch 5% [Lidoderm Patch] 1 patch TOP DAILY PRN #10 patch PRN Reason: pain HYDROcod/ACETAM 5/325 [Monroe 5/325] 1 - 2 ea PO Q6H PRN #14 tablet PRN Reason: Pain Comments: Your prescriptions were sent to [facility] in [place]. Please follow-up with your doctor for further care. You do have a rib fracture on x-ray today. This will heal, but can take several weeks to months. Please be cautious with the affected area as well. I am prescribing a short course of narcotic pain medication for you. These are potentially dangerous and addictive medications that should be used carefully. These medications may constipate you. Take an rurb-npl-akzlnsh stool softener (docusate) twice daily with plenty of water while taking these medications. If you go 24 hours without a bowel movement, take [id number] miralax, per package instructions. Do not drink or drive while taking these medications. If you received narcotic or sedating medications while in the emergency department, do not drive for 24 hours. Store this medication in a safe, secure place and out of reach of children. It is a violation of federal law to give or sell this medication to another person or to use in a manner other than prescribed. The ED will not refill narcotic prescriptions, including prescriptions lost or stolen. To dispose of unwanted medications: 1. [facility] [address] in [place] has a medication drop box. They accept prescription medications (in pill form) Thursday through Thursday 9:00 a.m. to 5:00 p.m. 2. The [facility] accepts prescription medications (in pill form only) for disposal year round. Call for more information. 3. Contact the [facility] for the next [facility] sponsored prescription drug collection event. , [phone], or [phone]; Discharge Date/Time: 01/06/22 09:16
--- NOTE | 2022-01-06 08:26 | XRAY Report ---
PROCEDURE: Ribs w/PA Chest RT INDICATIONS: R rib pain x 2 months TECHNIQUE: 3 views of the right ribs were acquired, along with a single view chest. COMPARISON: None FINDINGS: Surgical changes and devices: None. Bones and chest wall: Right posterior lateral minimally displaced fifth and sixth rib fractures are p resent. Questionable nondisplaced seventh rib fracture. No suspicious bony lesions. Overlying soft t issues appear unremarkable. Lungs and pleura: No pleural effusions or pneumothorax. Lungs appear clear. Mediastinum: Mediastinal contours appear normal. Heart size is normal. IMPRESSION: Right posterolateral minimally displaced fifth and sixth and possibly nondisplaced seventh rib fractu res. Reviewed by: Kelsi Reaves MD on 01/06/2022 8:24 AM PDT Approved by: Kelsi Reaves MD on 01/06/2022 8:24 AM PDT Station ID: [id number]
[2022-01-06 09:16] VITALS: BP 124/84
== END 2022-01-06 09:16 | disposition home or self-care (01) ==
LOC: ED 07:05
DX: S22.41XA Multiple fractures of ribs, right side, initial encounter for closed fracture (principal); X58.XXXA Exposure to other specified factors, initial encounter
CPT/HCPCS: 71101; 99283; 99284; A9270

== ENCOUNTER 2022-01-26 05:48 | Emergency (ER) | payer OTHER ==
[2022-01-26] MEDS ORDERED: oxyCODONE 5 MG TABLET PO STA (06:25)
[2022-01-26] MEDS ORDERED: ONDANSETRON ODT 4 MG TABLET TL STA (06:25)
--- NOTE | 2022-01-26 07:03 | ED Physician Documentation ---
PD HPI CHEST PAIN - Stated complaint Stated Complaint: RT RIB PX - Chief complaint Chief Complaint: Trauma Ch/Bk - History obtained from History obtained from: Patient - History of Present Illness Timing - onset: Yesterday Timing - details: Abrupt onset Quality: Pain Location: Right chest Associated symptoms: No: Shortness of air, Diaphoresis Similar symptoms before: Diagnosis (rib fracture) Recently seen: Emergency Dept - Additional information Additional information: c/o right chest wall pain since yesterday, sudden onset without specific inciting event while walking in grocery store. He had right rib fractures diagnosed last month, initially T+R outpatient setting and diagnosis was suspected right chest wall strain, but then came to ED for persistent right chest wall pain and xrays revealed right rib fractures (one or two visualized, one more suspected). He says the pain had basically resolved until yesterday when same pain sudden reoccurred without provocation Review of Systems Cardiac: reports: Reviewed and negative Respiratory: reports: Reviewed and negative GI: reports: Reviewed and negative PD PAST MEDICAL HISTORY - Past Medical History Cardiovascular: None Respiratory: None Neuro: None Endocrine/Autoimmune: None GI: None : None HEENT: Chronic vision loss Psych: None Musculoskeletal: None Derm: None - Past Surgical History Past Surgical History: No Cardiovascular: Other (Thorocospic decortication) - Present Medications Home Medications: Ambulatory Orders Medication Instructions Recorded Confirmed Albuterol Sulf [Ventolin Hfa 1 - 2 puffs INH Q4HR PRN #18 gm 08/10/21 01/26/22 Inhaler] HYDROcod/ACETAM 5/325 [[place] 5/325] 1 - 2 ea PO Q6H PRN #14 tablet 01/06/22 01/26/22 Lidocaine Patch 5% [Lidoderm Patch] 1 patch TOP DAILY PRN #10 patch 01/06/22 01/26/22 Escitalopram [Lexapro] 10 mg DAILY 01/26/22 01/26/22 Oxycodone HCl/Acetaminophen 1 - 2 each PO Q6H PRN #14 tablet 01/26/22 [Percocet 5-325 mg Tablet] - Allergies Allergies/Adverse Reactions: Allergies Allergy/AdvReac Type Severity Reaction Status Date / Time No Known Drug Allergies Allergy Verified 01/26/22 06:09 - Social History Does the pt smoke?: No Smoking Status: Never smoker Does the pt drink ETOH?: No Does the pt have substance abuse?: No - Immunizations Immunizations are current?: Yes - POLST Patient has POLST: No PD ED PE NORMAL - Vitals Vital signs reviewed: Yes - General General: Alert and oriented X 3, No acute distress, Well developed/nourished - Cardiac Cardiac: RRR, No murmur - Respiratory Respiratory: No respiratory distress, Clear bilaterally - Abdomen Abdomen: Soft, Non tender PD ED PE EXPANDED - Cardiac Cardiac: Chest wall TTP (left anterolateral chest wall TTP without [employer]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 I have discussed that the opioids are for short term therapy only, and will not be refilled from the ED Departure - Departure Disposition: 01 Home, Self Care Clinical Impression: Right rib fracture Qualifiers: Encounter type: subsequent encounter Rib fracture type: single rib Fracture type: closed Fracture healing: with delayed healing Qualified Code(s): S22.31XG - Fracture of one rib, right side, subsequent encounter for fracture with delayed healing Condition: Good Instructions: ED Fx Rib Follow-Up: Michel Puckett MD [Primary Care Provider] - Prescriptions: Oxycodone HCl/Acetaminophen [Percocet 5-325 mg Tablet] 1 - 2 each PO Q6H PRN #14 tablet PRN Reason: pain Comments: A prescription for percocet (oxycodone/acetaminophen) has been electronically submitted to [facility] in [place]. The chest xray does not show any new/concerning findings. The pain is most likely from the broken ribs still healing. I am prescribing a short course of narcotic pain medication for you. These are potentially dangerous and addictive medications that should be used carefully. These medications may constipate you. Take an qzlb-myh-dkklpsz stool softener (docusate) twice daily with plenty of water while taking these medications. If you go 24 hours without a bowel movement, take hukt-hsi-[id number] miralax, per package instructions. Do not drink or drive while taking these medications. If you received narcotic or sedating medications while in the emergency department, do not drive for 24 hours. Store this medication in a safe, secure place and out of reach of children. It is a violation of federal law to give or sell this medication to another person or to use in a manner other than prescribed. The ED will not refill narcotic prescriptions, including prescriptions lost or stolen. To dispose of unwanted medications: 1. [facility] at [address] in [place] has a medication drop box. They accept prescription medications (in pill form) Thursday through Thursday 9:00 a.m. to 5:00 p.m. 2. [facility] [employer] accepts prescription medications (in pill form only) for disposal year round. Call for more information. 3. Contact the [facility] for the next [facility] sponsored prescription drug collection event. , [phone], or [phone]; Discharge Date/Time: 01/26/22 07:50
[2022-01-26 07:21] VITALS: BP 133/85
--- NOTE | 2022-01-26 09:07 | XRAY Report ---
PROCEDURE: Chest 2 View X-Ray INDICATIONS: right chest pain, recent rib fractures TECHNIQUE: 2 view(s) of the chest. COMPARISON: 01/06/2022 FINDINGS: Surgical changes and devices: None. Lungs and pleura: No pleural effusions or pneumothorax. Lungs are clear. Mediastinum: Mediastinal contours are normal. Heart size is normal. Bones and chest wall: Old healed right-sided rib fractures are partially imaged. No pneumothorax. IMPRESSION: No acute cardiopulmonary findings. No pneumothorax. Old healed right-sided rib fractures, partially imaged Note: Final report is concordant with preliminary interpretation provided by [employer] Reviewed by: Zen Varghese MD on 01/26/2022 8:06 AM NOEL Approved by: Zen Varghese MD on 01/26/2022 8:06 AM NOEL Station ID: [id number]
== END 2022-01-26 07:50 | disposition home or self-care (01) ==
LOC: ED 05:48
DX: S22.31XG Fracture of one rib, right side, subsequent encounter for fracture with delayed healing (principal); X58.XXXD Exposure to other specified factors, subsequent encounter
CPT/HCPCS: 71046; 99283; A9270; Q0162